=== PATIENT | female | born 1960 | race Caucasian/White ===

== ENCOUNTER 2016-10-26 14:48 | Inpatient (IN) | payer OTHER ==
[~2016-10-26] VITALS: Ht 160 cm; Wt 80.0 kg
[2016-10-26] VITALS (8 sets, daily range): BP systolic 111–165; BP diastolic 70–95; PULSE 60–80; RESP 18–20; TEMP 97.7–98.5; O2SAT 97–100
[~2016-10-26 14:48] MED LIST: CELE20TA PO
--- NOTE | 2016-10-26 15:27 | PD ---
HPI Chief Complaint: Chest Pain Time Seen by Provider: 15:07 Travel History International Travel<30 days: No Contact w/Intl Traveler<30days: No Traveled to known affect area: No History of Present Illness HPI Patient is a 56-year-old female who presents to emergency room with her chest pain. She reports that she has been having intermittent chest pain for the past few months. Reports that today, she was having substernal chest pain which started around 10:30 to 11 AM, reports that radiates to her neck and upper jaw. Patient reports that the pain feels like a "pressure" to my chest. Also reports associated shortness of breath with her symptoms. Patient reports that nothing makes her pain better or worse. She reports that she was seen by Dr. short in the office for her chest pain. Patient reports that she had an abnormal stress test one month ago - reports that it showed ischemia and Dr. Short did talk to patient about eventually requiring cardiac cath with possible stent placement. Patient reports that she was placed on medicines about one month ago by Dr. short, she is unsure which medicines these are. PFSH Past Medical History Cancer: No Cardiovascular Problems: No Diabetes: No Endocrine: No Genitourinary: No Hepatitis: No Hiatal Hernia: No Immune Disorder: No Musculoskeletal: No Neurologic: No Psychiatric: Yes (depression) Reproductive: No Respiratory: No Thyroid Disease: No Past Surgical History AICD: No Gynecologic Surgery: Yes (hysterectomy) Joint Replacement: No Pacemaker: No Social History Alcohol Use: No Tobacco Use: No Substance Use: No Allergies-Medications (Allergen,Severity, Reaction): Coded Allergies: No Known Allergies (Unverified , 10/26/16) Reported Meds & Prescriptions Reported Meds & Active Scripts Active Reported Celexa (Citalopram Hydrobromide) 20 Mg Tab 20 Mg PO DAILY Review of Systems General / Constitutional: No: Fever Eyes: No: Visual changes HENT: No: Headaches Cardiovascular: Positive: Chest Pain or Discomfort, No: Diaphoresis Respiratory: Positive: Shortness of Breath Gastrointestinal: No: Abdominal Pain Genitourinary: No: Dysuria Musculoskeletal: No: Pain Skin: No Rash Neurologic: No: Weakness Psychiatric: No: Depression Endocrine: No: Polydipsia Hematologic/Lymphatic: No: Easy Bruising Physical Exam Narrative GENERAL: No acute distress, nontoxic SKIN: Focused skin assessment warm/dry. HEAD: Atraumatic. Normocephalic. EYES: Pupils equal and round. No scleral icterus. No injection or drainage. ENT: No nasal bleeding or discharge. Mucous membranes pink and moist. NECK: Trachea midline. No JVD. CARDIOVASCULAR: Regular rate and rhythm. No murmur appreciated. RESPIRATORY: No accessory muscle use. Clear to auscultation. Breath sounds equal bilaterally. GASTROINTESTINAL: Abdomen soft, non-tender, nondistended. Hepatic and splenic margins not palpable. MUSCULOSKELETAL: No obvious deformities. No clubbing. No cyanosis. No edema. NEUROLOGICAL: Awake and alert. No obvious cranial nerve deficits. Motor grossly within normal limits. Normal speech. PSYCHIATRIC: Appropriate mood and affect; insight and judgment normal. Data Data Last Documented VS Vital Signs Date Time Temp Pulse Resp B/P Pulse Ox O2 Delivery O2 Flow Rate FiO2 10/26/16 16:00 63 142/82 97 10/26/16 15:25 Room Air 10/26/16 15:25 98.5 18 Orders Electrocardiogram (10/26/16 15:07) Ecg Monitoring (10/26/16 15:07) Iv Access Insert/Monitor (10/26/16 15:07) Oximetry (10/26/16 15:07) B-Type Natriuretic Peptide (10/26/16 15:18) Ckmb (Isoenzyme) Profile (10/26/16 15:18) Complete Blood Count With Diff (10/26/16 15:18) Comprehensive Metabolic Panel (10/26/16 15:18) Magnesium (Mg) (10/26/16 15:18) Prothrombin Time / Inr (Pt) (10/26/16 15:18) Act Partial Throm Time (Ptt) (10/26/16 15:18) Troponin I (10/26/16 15:18) Chest, Single Ap (10/26/16 15:18) Aspirin Chew (Aspirin Chew) (10/26/16 15:30) Sodium Chloride 0.9% Flush (Ns Flush) (10/26/16 15:30) Nitroglycerin Sl (Nitrostat Sl) (10/26/16 15:30) Sodium Chlorid 0.9% 500 Ml Inj (Ns 500 M (10/26/16 15:30) Consult Cardiology (10/26/16 ) Heparin Infusion EDGAR.Q1H (10/26/16 17:00) Heparin-D5w Inj (Heparin-D5w Inj) (10/26/16 17:00) Labs Laboratory Tests Test 10/26/16 15:21 White Blood Count 5.5 TH/MM3 Red Blood Count 4.66 MIL/MM3 Hemoglobin 14.5 GM/DL Hematocrit 42.6 % Mean Corpuscular Volume 91.4 FL Mean Corpuscular Hemoglobin 31.2 PG Mean Corpuscular Hemoglobin 34.1 % Concent Red Cell Distribution Width 13.6 % Platelet Count 297 TH/MM3 Mean Platelet Volume 8.4 FL Neutrophils (%) (Auto) 59.7 % Lymphocytes (%) (Auto) 32.8 % Monocytes (%) (Auto) 5.4 % Eosinophils (%) (Auto) 1.2 % Basophils (%) (Auto) 0.9 % Neutrophils # (Auto) 3.3 TH/MM3 Lymphocytes # (Auto) 1.8 TH/MM3 Monocytes # (Auto) 0.3 TH/MM3 Eosinophils # (Auto) 0.1 TH/MM3 Basophils # (Auto) 0.0 TH/MM3 CBC Comment DIFF FINAL Differential Comment Prothrombin Time 10.0 SEC Prothromb Time International 0.9 RATIO Ratio Activated Partial 25.6 SEC Thromboplast Time Sodium Level 139 MEQ/L Potassium Level 3.8 MEQ/L Chloride Level 102 MEQ/L Carbon Dioxide Level 29.6 MEQ/L Anion Gap 7 MEQ/L Blood Urea Nitrogen 11 MG/DL Creatinine 0.98 MG/DL Estimat Glomerular Filtration 58 ML/MIN Rate Random Glucose 98 MG/DL Calcium Level 9.4 MG/DL Magnesium Level 2.2 MG/DL Total Bilirubin 0.6 MG/DL Aspartate Amino Transf 14 U/L (AST/SGOT) Alanine Aminotransferase 19 U/L (ALT/SGPT) Alkaline Phosphatase 82 U/L Total Creatine Kinase 59 U/L Troponin I LESS THAN 0.02 NG/ML B-Type Natriuretic Peptide 21 PG/ML Total Protein 7.5 GM/DL Albumin 3.9 GM/DL MDM Medical Decision Making Medical Screen Exam Complete: Yes Emergency Medical Condition: Yes Interpretation(s) EKG at 1515 NSR at 70bpm, qt/qtc: 368/389, no acute st or t wave changes Vital Signs Date Time Temp Pulse Resp B/P Pulse Ox O2 Delivery O2 Flow Rate FiO2 10/26/16 14:51 97.7 80 20 155/95 99 Room Air Differential Diagnosis Differential includes ACS, arrhythmia, electrolyte abnormality, PE though unlikely Narrative Course Patient is 56-year-old female who presents to emergency with complaints of chest pain. Patient was placed on a catheterization laboratory technician upon arrival to the emergency room. EKG obtained, EKG with no ST or T-wave changes. Plan to give sublingual nitroglycerin for chest pain. Lab work including cardiac enzymes and chest x-ray ordered. Patient does follow Dr. short, or han after labs have resulted and patient is chest pain-free Vital Signs Date Time Temp Pulse Resp B/P Pulse Ox O2 Delivery O2 Flow Rate FiO2 10/26/16 14:51 97.7 80 20 155/95 99 Room Air Patient reports "decreased heaviness to my chest" after 2 SL nitro administered. Will give another SL nitro. Patient chest pain free after 3 SL nitro Call made to Dr. Short Laboratory Tests Test 10/26/16 15:21 White Blood Count 5.5 TH/MM3 (4.0-11.0) Red Blood Count 4.66 MIL/MM3 (4.00-5.30) Hemoglobin 14.5 GM/DL (11.6-15.3) Hematocrit 42.6 % (35.0-46.0) Mean Corpuscular Volume 91.4 FL (80.0-100.0) Mean Corpuscular Hemoglobin 31.2 PG (27.0-34.0) Mean Corpuscular Hemoglobin 34.1 % Concent (32.0-36.0) Red Cell Distribution Width 13.6 % (11.6-17.2) Platelet Count 297 TH/MM3 (150-450) Mean Platelet Volume 8.4 FL (7.0-11.0) Neutrophils (%) (Auto) 59.7 % (16.0-70.0) Lymphocytes (%) (Auto) 32.8 % (9.0-44.0) Monocytes (%) (Auto) 5.4 % (0.0-8.0) Eosinophils (%) (Auto) 1.2 % (0.0-4.0) Basophils (%) (Auto) 0.9 % (0.0-2.0) Neutrophils # (Auto) 3.3 TH/MM3 (1.8-7.7) Lymphocytes # (Auto) 1.8 TH/MM3 (1.0-4.8) Monocytes # (Auto) 0.3 TH/MM3 (0-0.9) Eosinophils # (Auto) 0.1 TH/MM3 (0-0.4) Basophils # (Auto) 0.0 TH/MM3 (0-0.2) CBC Comment DIFF FINAL Differential Comment Prothrombin Time 10.0 SEC (9.8-11.6) Prothromb Time International 0.9 RATIO Ratio Activated Partial 25.6 SEC Thromboplast Time (24.3-30.1) Sodium Level 139 MEQ/L (136-145) Potassium Level 3.8 MEQ/L (3.5-5.1) Chloride Level 102 MEQ/L (98-107) Carbon Dioxide Level 29.6 MEQ/L (21.0-32.0) Anion Gap 7 MEQ/L (5-15) Blood Urea Nitrogen 11 MG/DL (7-18) Creatinine 0.98 MG/DL (0.50-1.00) Estimat Glomerular Filtration 58 ML/MIN (>89) Rate Random Glucose 98 MG/DL (74-106) Calcium Level 9.4 MG/DL (8.5-10.1) Magnesium Level 2.2 MG/DL (1.5-2.5) Total Bilirubin 0.6 MG/DL (0.2-1.0) Aspartate Amino Transf 14 U/L (15-37) (AST/SGOT) Alanine Aminotransferase 19 U/L (10-53) (ALT/SGPT) Alkaline Phosphatase 82 U/L (45-117) Total Creatine Kinase 59 U/L (26-192) Troponin I LESS THAN 0.02 NG/ML (0.02-0.05) B-Type Natriuretic Peptide 21 PG/ML (0-100) Total Protein 7.5 GM/DL (6.4-8.2) Albumin 3.9 GM/DL (3.4-5.0) Case reviewed with Dr. Short, request admission to medicine service for unstable angina. Patient will require cardiac catheterization during admission Case reviewed with Dr. Richards who accepts pt to service under Dr. Ann Critical Care Narrative Aggregate critical care time was 30 minutes. Time to perform other separately billable procedures was not included in the critical care time. My time did not include minutes spent treating any other patients simultaneously or on activities that did not directly contribute to the patient's treatment. The services I provided to this patient were to treat and/or prevent clinically significant deterioration that could result in: , decompensation, deterioration I provided critical care services requiring my management, as noted below: Chart data review, documentation time, medication orders and management, vital sign assessments/reviewing monitor data, ordering and reviewing lab tests, ordering and interpreting/reviewing x-rays and diagnostic studies, care of the patient and discussion of the patient with the admitting physicians. Diagnosis Primary Impression: Unstable angina Admitting Information Admitting Physician Requests: Admit Disposition: 65 DISC TO [facility] Elham Singh DO Oct 26, 2016 15:27
[2016-10-26] MEDS ORDERED: ASPIRIN 81 MG CHEW TAB PO ONE (15:30)
[2016-10-26] MEDS ORDERED: SODIUM CHLORID 0.9% 500 ML INJ 500 ML IV ONE (15:30)
[2016-10-26] MEDS ORDERED: SODIUM CHLORIDE 0.9% FLUSH 10 ML FLUSH IVF PRN (15:30)
[2016-10-26] MEDS: NITROGLYCERIN 0.4 MG SL 25 TABS/BTL SL SCH ×3 (15:39→16:39)
--- NOTE | 2016-10-26 15:46 | RADRPT ---
EXAM DATE/TIME: 10/26/2016 15:21 [place] COMPARISON: No previous studies available for comparison. INDICATIONS : Chest pain. MEDICAL HISTORY : Cardiovascular disease. SURGICAL HISTORY : None. ENCOUNTER: Initial ACUITY: 7 - 11 months PAIN SCORE: 4/10 LOCATION: middle chest. FINDINGS: A single view of the chest demonstrates the lungs to be symmetrically aerated without evidence of mas s, infiltrate or effusion. The cardiomediastinal contours are unremarkable. Osseous structures are intact. CONCLUSION: Normal examination. Adrian Clark Jr., MD on October 26, 2016 at 15:44 Board Certified Radiologist. This report was verified electronically.
[2016-10-26 16:05] LABS: AUTOMATED NEUTROPHIL # 3.3 TH/MM3 (1.8-7.7); BASOPHIL % 0.9 % (0.0-2.0); EOSINOPHIL # 0.1 TH/MM3 (0-0.4); EOSINOPHIL % 1.2 % (0.0-4.0); HEMATOCRIT 42.6 % (35.0-46.0); HEMO FLAGS DIFF FINAL; LYMPH % 32.8 % (9.0-44.0); LYMPHOCYTE # 1.8 TH/MM3 (1.0-4.8); MEAN CELL VOLUME 91.4 FL (80.0-100.0); MEAN CORPUSCULAR HEMOGLOBIN 31.2 PG (27.0-34.0); MEAN CORPUSCULAR HGB CONC 34.1 % (32.0-36.0); MONO % 5.4 % (0.0-8.0); NEUT % 59.7 % (16.0-70.0); PLATELET COUNT 297 TH/MM3 (150-450); RED BLOOD COUNT 4.66 MIL/MM3 (4.00-5.30); RED CELL DISTRIBUTION WIDTH 13.6 % (11.6-17.2); WHITE BLOOD COUNT 5.5 TH/MM3 (4.0-11.0)
[2016-10-26 16:18] LABS: APTT (PATIENT) 25.6 SEC (24.3-30.1); INTERNATIONAL NORMALIZED RATIO 0.9 RATIO
[2016-10-26 16:36] LABS: ANION GAP 7 MEQ/L (5-15); AST (GOT) 14 U/L (15-37); BICARBONATE 29.6 MEQ/L (21.0-32.0); BLOOD UREA NITROGEN 11 MG/DL (7-18); CHLORIDE 102 MEQ/L (98-107); GLOMERULAR FILTRATION RATE 58 ML/MIN (>89); MAGNESIUM 2.2 MG/DL (1.5-2.5); POTASSIUM 3.8 MEQ/L (3.5-5.1); SODIUM (NA) 139 MEQ/L (136-145)
[2016-10-26 16:39] LABS: ALKALINE PHOSPHATASE 82 U/L (45-117); ALT (GPT) 19 U/L (10-53); TOTAL BILIRUBIN ADULT 0.6 MG/DL (0.2-1.0)
[2016-10-26 16:40] LABS: CREATINE KINASE 59 U/L (26-192)
[2016-10-26] MEDS ORDERED: HEPARIN-D5W INJ 250 ML IV SCH (17:00)
--- NOTE | 2016-10-26 18:26 | HHI.HP ---
HPI Service [facility] Hospitalists Primary Care Physician Mak Pearce MD Admission Diagnosis Unstable Angina Chief Complaint: recurrent chest pain admit as per cardiology Travel History International Travel<30 Days: No Contact w/Intl Traveler <30 Da: No Traveled to Known Affected Are: No History of Present Illness Patient is a 56-year-old female who presents to emergency room with her chest pain. She reports that she has been having intermittent chest pain for the past few months. Reports that today, she was having substernal chest pain which started around 10:30 to 11 AM, reports that radiates to her neck and upper jaw. Patient reports that the pain feels like a "pressure" to my chest. Also reports associated shortness of breath with her symptoms. Patient reports that nothing makes her pain better or worse. She reports that she was seen by Dr. short in the office for her chest pain. Patient reports that she had an abnormal stress test one month ago - reports that it showed ischemia and Dr. Short did talk to patient about eventually requiring cardiac cath with possible stent placement. Patient reports that she was placed on medicines about one month ago by Dr. short, she is unsure which medicine she is on. Patient started on heparin drip and consult to cardiology. Review of Systems Respiratory: COMPLAINS OF: Shortness of breath Cardiovascular: COMPLAINS OF: Chest pain Past Family Social History Past Medical History depression ,recent positive stress test Past Surgical History hysterectomy,tumor removed from back Reported Medications celexa,cardiac med Allergies: Coded Allergies: No Known Allergies (Unverified , 10/26/16) Family History positive for cad Social History NS,ND Physical Exam Vital Signs Vital Signs Date Time Temp Pulse Resp B/P Pulse Ox O2 Delivery O2 Flow Rate FiO2 10/26/16 17:55 65 127/74 10/26/16 16:00 63 142/82 97 10/26/16 15:25 97 Room Air 10/26/16 15:25 98.5 67 18 140/70 98 Room Air 10/26/16 14:51 97.7 80 20 155/95 99 Room Air Physical Exam GENERAL: This is a well-nourished, well-developed patient, in no apparent distress. SKIN: No rashes, ecchymoses or lesions. Cool and dry. HEAD: Atraumatic. Normocephalic. No temporal or scalp tenderness. EYES: Pupils equal round and reactive. Extraocular motions intact. No scleral icterus. No injection or drainage. ENT: Nose without bleeding, purulent drainage or septal hematoma. Throat without erythema, tonsillar hypertrophy or exudate. Uvula midline. Airway patent. NECK: Trachea midline. No JVD or lymphadenopathy. Supple, nontender, no meningeal signs. CARDIOVASCULAR: Regular rate and rhythm without murmurs, gallops, or rubs. RESPIRATORY: Clear to auscultation. Breath sounds equal bilaterally. No wheezes , rales, or rhonchi. GASTROINTESTINAL: Abdomen soft, non-tender, nondistended. No hepato-splenomegaly , or palpable masses. No guarding. MUSCULOSKELETAL: Extremities without clubbing, cyanosis, or edema. No joint tenderness, effusion, or edema noted. No calf tenderness. Negative Homans sign bilaterally. NEUROLOGICAL: Awake and alert. Cranial nerves II through XII intact. Motor and sensory grossly within normal limits. Five out of 5 muscle strength in all muscle groups. Normal speech. Laboratory Laboratory Tests Test 10/26/16 15:21 White Blood Count 5.5 Red Blood Count 4.66 Hemoglobin 14.5 Hematocrit 42.6 Mean Corpuscular Volume 91.4 Mean Corpuscular Hemoglobin 31.2 Mean Corpuscular Hemoglobin 34.1 Concent Red Cell Distribution Width 13.6 Platelet Count 297 Mean Platelet Volume 8.4 Neutrophils (%) (Auto) 59.7 Lymphocytes (%) (Auto) 32.8 Monocytes (%) (Auto) 5.4 Eosinophils (%) (Auto) 1.2 Basophils (%) (Auto) 0.9 Neutrophils # (Auto) 3.3 Lymphocytes # (Auto) 1.8 Monocytes # (Auto) 0.3 Eosinophils # (Auto) 0.1 Basophils # (Auto) 0.0 CBC Comment DIFF FINAL Differential Comment Prothrombin Time 10.0 Prothromb Time International 0.9 Ratio Activated Partial 25.6 Thromboplast Time Sodium Level 139 Potassium Level 3.8 Chloride Level 102 Carbon Dioxide Level 29.6 Anion Gap 7 Blood Urea Nitrogen 11 Creatinine 0.98 Estimat Glomerular Filtration 58 Rate Random Glucose 98 Calcium Level 9.4 Magnesium Level 2.2 Total Bilirubin 0.6 Aspartate Amino Transf 14 (AST/SGOT) Alanine Aminotransferase 19 (ALT/SGPT) Alkaline Phosphatase 82 Total Creatine Kinase 59 Troponin I LESS THAN 0.02 B-Type Natriuretic Peptide 21 Total Protein 7.5 Albumin 3.9 Result Diagram: 10/26/16 1521 10/26/16 1521 Imaging Last 24 hours Impressions Chest X-Ray 10/26/16 1518 Signed Impressions: Service Date/Time: Wednesday, October 26, 2016 15:21 - CONCLUSION: Normal examination. Adrian Clark Jr., MD Course ekg no acute changes Assessment and Plan Problem List: (1) Unstable angina Status: Acute Plan: plan ad beka probable cath ,heparin drip ntg prn add nitro paste unknown med given by cardiology may be isorbide will check records in am Assessment and Plan as above further plan pending cardiac consult Code Status full Discussed Condition With patient Physician Certification 2 Midnight Certification Type: Admission for Inpatient Services Order for Inpatient Services The services are ordered in accordance with Medicare regulations or non- Medicare payer requirements, as applicable. In the case of services not specified as inpatient-only, they are appropriately provided as inpatient services in accordance with the 2-midnight benchmark. Estimated LOS (days): 3 3 days is the estimated time the patient will need to remain in the hospital, assuming treatment plan goals are met and no additional complications. Post-Hospital Plan: Not yet determined Joni Pinedo MD Oct 26, 2016 18:26
[2016-10-26] MEDS ORDERED: NALOXONE HCL 0.4 MG/ML AMP IV PRN (18:30)
[2016-10-26] MEDS ORDERED: MAGNESIUM HYDROXIDE SUSP 30 ML CUP PO PRN (18:30)
[2016-10-26] MEDS ORDERED: TEMAZEPAM 15 MG CAP PO PRN (18:30)
[2016-10-26] MEDS ORDERED: LACTULOSE SYRUP 20 GM/30 ML CUP PO PRN (18:30)
[2016-10-26] MEDS ORDERED: SENNOSIDES 8.6 MG TAB PO PRN (18:30)
[2016-10-26] MEDS ORDERED: SODIUM CHLORIDE 0.9% FLUSH 10 ML FLUSH IV FLUSH PRN (18:30)
[2016-10-26] MEDS ORDERED: BISACODYL 10 MG SUPP RECTAL PRN (18:30)
[2016-10-26] MEDS ORDERED: ONDANSETRON HCL 4 MG/2 ML VIAL IVP PRN (18:30)
[2016-10-26] MEDS ORDERED: ACETAMINOPHEN 325 MG TAB PO PRN (18:30)
[2016-10-26] MEDS: SODIUM CHLORIDE 0.9% FLUSH 10 ML FLUSH IV FLUSH SCH (21:00)
[2016-10-26] MEDS: NITROGLYCERIN 2% OINT 1 GM PACKET TOPICAL SCH (23:44)
[2016-10-26] MEDS: DOCUSATE SODIUM 50 MG/SENNA 8.6 MG TAB PO SCH (23:44)
[2016-10-27] VITALS (10 sets, daily range): BP systolic 116–153; BP diastolic 62–88; PULSE 54–66; RESP 18–20; TEMP 97.4–97.8; O2SAT 95–99
[2016-10-27 00:35] LABS: APTT (PATIENT) 43.6 SEC (24.3-30.1)
[2016-10-27 04:52] LABS: APTT (PATIENT) 49.4 SEC (24.3-30.1)
[2016-10-27] MEDS: NITROGLYCERIN 2% OINT 1 GM PACKET TOPICAL SCH (06:09)
[2016-10-27] MEDS ORDERED: CITA20TA4 PO (07:55)
--- NOTE | 2016-10-27 08:29 | PD.PN.STU ---
Subjective Remarks Patient reports chest tightness relief with nitropaste application Has not had chest pain since initial application States pain has come and gone for several months Agreeable to inpatient admittance for potential intervention, pending cardiology opinion Objective Vitals Vital Signs Date Time Temp Pulse Resp B/P Pulse Ox O2 Delivery O2 Flow Rate FiO2 10/27/16 06:09 64 18 126/63 96 Room Air 10/27/16 04:29 65 18 116/62 95 Room Air 10/27/16 02:35 61 18 118/67 99 Room Air 10/27/16 01:25 60 18 124/73 99 Room Air 10/27/16 00:30 66 18 153/70 99 Room Air 10/26/16 23:15 62 18 121/70 99 Room Air 10/26/16 22:15 60 18 135/80 98 Room Air 10/26/16 21:08 66 18 165/83 100 Room Air 10/26/16 19:05 68 18 111/70 97 Room Air 10/26/16 17:55 65 127/74 10/26/16 16:00 63 142/82 97 10/26/16 15:25 97 Room Air 10/26/16 15:25 98.5 67 18 140/70 98 Room Air 10/26/16 14:51 97.7 80 20 155/95 99 Room Air Result Diagram: 10/26/16 1521 10/26/16 1521 Other Results Laboratory Tests Test 10/26/16 10/26/16 10/27/16 15:21 23:36 04:16 White Blood Count 5.5 TH/MM3 (4.0-11.0) Red Blood Count 4.66 MIL/MM3 (4.00-5.30) Hemoglobin 14.5 GM/DL (11.6-15.3) Hematocrit 42.6 % (35.0-46.0) Mean Corpuscular Volume 91.4 FL (80.0-100.0) Mean Corpuscular Hemoglobin 31.2 PG (27.0-34.0) Mean Corpuscular Hemoglobin 34.1 % Concent (32.0-36.0) Red Cell Distribution Width 13.6 % (11.6-17.2) Platelet Count 297 TH/MM3 (150-450) Mean Platelet Volume 8.4 FL (7.0-11.0) Neutrophils (%) (Auto) 59.7 % (16.0-70.0) Lymphocytes (%) (Auto) 32.8 % (9.0-44.0) Monocytes (%) (Auto) 5.4 % (0.0-8.0) Eosinophils (%) (Auto) 1.2 % (0.0-4.0) Basophils (%) (Auto) 0.9 % (0.0-2.0) Neutrophils # (Auto) 3.3 TH/MM3 (1.8-7.7) Lymphocytes # (Auto) 1.8 TH/MM3 (1.0-4.8) Monocytes # (Auto) 0.3 TH/MM3 (0-0.9) Eosinophils # (Auto) 0.1 TH/MM3 (0-0.4) Basophils # (Auto) 0.0 TH/MM3 (0-0.2) CBC Comment DIFF FINAL Differential Comment Prothrombin Time 10.0 SEC (9.8-11.6) Prothromb Time International 0.9 RATIO Ratio Activated Partial 25.6 SEC 43.6 SEC 49.4 SEC Thromboplast Time (24.3-30.1) (24.3-30.1) (24.3-30.1) Sodium Level 139 MEQ/L (136-145) Potassium Level 3.8 MEQ/L (3.5-5.1) Chloride Level 102 MEQ/L (98-107) Carbon Dioxide Level 29.6 MEQ/L (21.0-32.0) Anion Gap 7 MEQ/L (5-15) Blood Urea Nitrogen 11 MG/DL (7-18) Creatinine 0.98 MG/DL (0.50-1.00) Estimat Glomerular Filtration 58 ML/MIN (>89) Rate Random Glucose 98 MG/DL (74-106) Calcium Level 9.4 MG/DL (8.5-10.1) Magnesium Level 2.2 MG/DL (1.5-2.5) Total Bilirubin 0.6 MG/DL (0.2-1.0) Aspartate Amino Transf 14 U/L (15-37) (AST/SGOT) Alanine Aminotransferase 19 U/L (10-53) (ALT/SGPT) Alkaline Phosphatase 82 U/L (45-117) Total Creatine Kinase 59 U/L (26-192) Troponin I LESS THAN 0.02 LESS THAN 0.02 NG/ML NG/ML (0.02-0.05) (0.02-0.05) B-Type Natriuretic Peptide 21 PG/ML (0-100) Total Protein 7.5 GM/DL (6.4-8.2) Albumin 3.9 GM/DL (3.4-5.0) Imaging Last 72 hours Impressions Chest X-Ray 10/26/16 1518 Signed Impressions: Service Date/Time: Wednesday, October 26, 2016 15:21 - CONCLUSION: Normal examination. Adrian Clark Jr., MD Objective Remarks RRR no rubs murmurs gallops Lungs clear bilaterally No leg edema, abdominal tenderness, chest pain when palpated Troponins remain undetectable Medications and IVs Current Medications Medications (Trade) Dose Ordered Sig/Teresa Route PRN Reason Start Time Stop Time Status Last Admin Dose Admin Heparin Sodium/ Dextrose (Heparin-D5W Inj) 250 ml @ 0 mls/hr TITRATE IV 10/26/16 17:00 10/26/16 17:34 Citalopram Hydrobromide (CeleXA) 20 mg DAILY PO 10/27/16 09:00 Sodium Chloride (NS Flush) 2 ml UNSCH PRN IV FLUSH FLUSH AFTER USING IV ACCESS 10/26/16 18:30 Sodium Chloride (NS Flush) 2 ml BID IV FLUSH 10/26/16 21:00 Acetaminophen (Tylenol) 650 mg Q4H PRN PO TEMP>101F, PAIN 1-10, HEADACHE 10/26/16 18:30 Ondansetron HCl (Zofran Inj) 4 mg Q6H PRN IVP NAUSEA OR VOMITING 10/26/16 18:30 Temazepam (Restoril) 15 mg HS PRN PO INSOMNIA 10/26/16 18:30 Naloxone HCl (Narcan Inj) 0.4 mg UNSCH PRN IV SEE LABEL COMMENTS 10/26/16 18:30 Senna/Docusate Sodium (Kisha-Colace) 1 tab BID PO 10/26/16 21:00 10/26/16 23:44 Magnesium Hydroxide (Milk Of Magnesia Liq) 30 ml Q12H PRN PO MILD - MODERATE CONSTIPATION 10/26/16 18:30 Sennosides (Senokot) 17.2 mg Q12H PRN PO MODERATE - SEVERE CONSTIPATION 10/26/16 18:30 Bisacodyl (Dulcolax Supp) 10 mg DAILY PRN RECTAL SEVERE CONSITIPATION 10/26/16 18:30 Lactulose (Lactulose Liq) 30 ml DAILY PRN PO SEVERE CONSITIPATION 10/26/16 18:30 Nitroglycerin (Nitroglycerin 2% Oint) 0.5 inch Q8HR TOPICAL 10/26/16 22:00 10/27/16 06:09 A/P Assessment and Plan 1) Unstable angina Pain relieved with nitropaste, previous positive stress test Consult cardiology for evaluation with possible intervention, established with Dr. Miller Prescribed unknown medication in June, clarify with Dr. Miller Continue heparin drip Continue nitropaste as tolerated Continue telemetry 2) Depression Currently on citalopram, continue per outpatient regiment Etta Reyez M3 Oct 27, 2016 08:29
[2016-10-27] MEDS: SODIUM CHLORIDE 0.9% FLUSH 10 ML FLUSH IV FLUSH SCH (09:00)
[2016-10-27] MEDS ORDERED: CITALOPRAM HYDROBROMIDE 20 MG TAB PO SCH (09:00)
[2016-10-27] MEDS: DOCUSATE SODIUM 50 MG/SENNA 8.6 MG TAB PO SCH (09:22)
--- NOTE | 2016-10-27 09:41 | HHI.PR ---
Subjective Remarks Pt has reportedly been having intermittent chest pressure for several weeks. She had an outpt Lexiscan on 09/09/16 which noted mild to moderate inferolateral ischemia superimposed on probable subendocardial infarct pattern, normal LVSF. Pt had requested medical management and was started on Imdur 30mg po daily on 09/09/16 but has continued to have chest pain. She did have relief of her chest pain with Nitro paste application in the ED Currently CP free. Objective Vitals Vital Signs Date Time Temp Pulse Resp B/P Pulse Ox O2 Delivery O2 Flow Rate FiO2 10/27/16 06:09 64 18 126/63 96 Room Air 10/27/16 04:29 65 18 116/62 95 Room Air 10/27/16 02:35 61 18 118/67 99 Room Air 10/27/16 01:25 60 18 124/73 99 Room Air 10/27/16 00:30 66 18 153/70 99 Room Air 10/26/16 23:15 62 18 121/70 99 Room Air 10/26/16 22:15 60 18 135/80 98 Room Air 10/26/16 21:08 66 18 165/83 100 Room Air 10/26/16 19:05 68 18 111/70 97 Room Air 10/26/16 17:55 65 127/74 10/26/16 16:00 63 142/82 97 10/26/16 15:25 97 Room Air 10/26/16 15:25 98.5 67 18 140/70 98 Room Air 10/26/16 14:51 97.7 80 20 155/95 99 Room Air Result Diagram: 10/26/16 1521 10/26/16 1521 Other Results Laboratory Tests Test 10/26/16 10/26/16 10/27/16 15:21 23:36 04:16 White Blood Count 5.5 TH/MM3 Red Blood Count 4.66 MIL/MM3 Hemoglobin 14.5 GM/DL Hematocrit 42.6 % Mean Corpuscular Volume 91.4 FL Mean Corpuscular Hemoglobin 31.2 PG Mean Corpuscular Hemoglobin 34.1 % Concent Red Cell Distribution Width 13.6 % Platelet Count 297 TH/MM3 Mean Platelet Volume 8.4 FL Neutrophils (%) (Auto) 59.7 % Lymphocytes (%) (Auto) 32.8 % Monocytes (%) (Auto) 5.4 % Eosinophils (%) (Auto) 1.2 % Basophils (%) (Auto) 0.9 % Neutrophils # (Auto) 3.3 TH/MM3 Lymphocytes # (Auto) 1.8 TH/MM3 Monocytes # (Auto) 0.3 TH/MM3 Eosinophils # (Auto) 0.1 TH/MM3 Basophils # (Auto) 0.0 TH/MM3 CBC Comment DIFF FINAL Differential Comment Prothrombin Time 10.0 SEC Prothromb Time International 0.9 RATIO Ratio Activated Partial 25.6 SEC 43.6 SEC 49.4 SEC Thromboplast Time Sodium Level 139 MEQ/L Potassium Level 3.8 MEQ/L Chloride Level 102 MEQ/L Carbon Dioxide Level 29.6 MEQ/L Anion Gap 7 MEQ/L Blood Urea Nitrogen 11 MG/DL Creatinine 0.98 MG/DL Estimat Glomerular Filtration 58 ML/MIN Rate Random Glucose 98 MG/DL Calcium Level 9.4 MG/DL Magnesium Level 2.2 MG/DL Total Bilirubin 0.6 MG/DL Aspartate Amino Transf 14 U/L (AST/SGOT) Alanine Aminotransferase 19 U/L (ALT/SGPT) Alkaline Phosphatase 82 U/L Total Creatine Kinase 59 U/L Troponin I LESS THAN 0.02 LESS THAN 0.02 NG/ML NG/ML B-Type Natriuretic Peptide 21 PG/ML Total Protein 7.5 GM/DL Albumin 3.9 GM/DL Imaging Last 24 hours Impressions Chest X-Ray 10/26/16 1518 Signed Impressions: Service Date/Time: Wednesday, October 26, 2016 15:21 - CONCLUSION: Normal examination. Adrian Clark Jr., MD Objective Remarks General: NAD, AAOx3 Chest: CTA Cardiac: Regular Abd: +BS, soft ND/NT Ext: No edema A/P Problem List: (1) Unstable angina Status: Acute Plan: - Pt admitted with chest pain that has been going on for several months intermittently - She had an outpt Lexiscan on 09/09/16 which noted mild to moderate inferolateral ischemia superimposed on probable subendocardial infarct pattern, normal LVSF. - Pt had requested medical management and was started on Imdur 30mg po daily on 09/09/16 but has continued to have chest pain. - Nitro paste applied in ED with relief of chest pain - Serial CE are negative. - Heparin drip started in the ED - Cardiology consulted, pt known to Dr. Minor. - ASA - Supportive Care Assessment and Plan Patient examined. Assessment and plan formulated with Elham Gudino PA-C. I agree with the above. [facility] negative for cad. d/c home and f/u. Elham Gudino Oct 27, 2016 09:41 Rigoberto Caputo MD Oct 27, 2016 15:06
--- NOTE | 2016-10-27 10:00 | PD.CONS ---
HPI Service cardiology Consult Requested By Reason for Consult chest pain Primary Care Physician Mak Pearce MD History of Present Illness 56 yo WF with daily intermittent chest pain seen by Dr. Miller in outpatient setting in August, bhupinderiscan showed mild-moderate ischemia and has been managed medically with isosorbide. She notes mild improvement with isosorbide but continues to be symptomatic on a daily basis. Chest discomfort felt anteriorly lasting several minutes; yesterday symptoms referred to her jaw with associated SOB. She notes reoccurence of chest pain during the night. Currently feeling well. ECG has shown no concerning ST changes and serial troponins negative. Review of Systems Consitutional: DENIES: Fatigue, Fever, Chills, Weight gain, Weight loss Respiratory: DENIES: Cough, Snoring, Wheezing, Sputum production Cardiovascular: DENIES: Palpitations, Syncope, Tachycardia Gastrointestinal: DENIES: Nausea, Vomiting, Change in bowel habits, Reflux, Bloody stools, Melena Past Family Social History Allergies: Coded Allergies: No Known Allergies (Unverified , 10/26/16) Past Medical History HTN Reported Medications Reported Meds & Active Scripts Active Reported Citalopram (Citalopram Hydrobromide) 20 Mg Tab 20 Mg PO DAILY Active Ordered Medications Current Medications Medications (Trade) Dose Ordered Sig/Teresa Route Start Time Stop Time Status Last Admin (Heparin-D5W Inj) 250 ml @ 0 mls/hr TITRATE IV 10/26/16 17:00 10/26/16 17:34 (CeleXA) 20 mg DAILY PO 10/27/16 09:00 10/27/16 09:22 (NS Flush) 2 ml UNSCH PRN IV FLUSH 10/26/16 18:30 (NS Flush) 2 ml BID IV FLUSH 10/26/16 21:00 (Tylenol) 650 mg Q4H PRN PO 10/26/16 18:30 (Zofran Inj) 4 mg Q6H PRN IVP 10/26/16 18:30 (Restoril) 15 mg HS PRN PO 10/26/16 18:30 (Narcan Inj) 0.4 mg UNSCH PRN IV 10/26/16 18:30 (Kisha-Colace) 1 tab BID PO 10/26/16 21:00 10/27/16 09:22 (Milk Of Magnesia Liq) 30 ml Q12H PRN PO 10/26/16 18:30 (Senokot) 17.2 mg Q12H PRN PO 10/26/16 18:30 (Dulcolax Supp) 10 mg DAILY PRN RECTAL 10/26/16 18:30 (Lactulose Liq) 30 ml DAILY PRN PO 10/26/16 18:30 (Nitroglycerin 2% Oint) 0.5 inch Q8HR TOPICAL 10/26/16 22:00 10/27/16 06:09 Family History no known family history of premature cardiac Social History no etoh, non-smoker, no ilicit drug use Physical Exam Vital Signs Vital Signs Date Time Temp Pulse Resp B/P Pulse Ox O2 Delivery O2 Flow Rate FiO2 10/27/16 06:09 64 18 126/63 96 Room Air 10/27/16 04:29 65 18 116/62 95 Room Air 10/27/16 02:35 61 18 118/67 99 Room Air 10/27/16 01:25 60 18 124/73 99 Room Air 10/27/16 00:30 66 18 153/70 99 Room Air 10/26/16 23:15 62 18 121/70 99 Room Air 10/26/16 22:15 60 18 135/80 98 Room Air 10/26/16 21:08 66 18 165/83 100 Room Air 10/26/16 19:05 68 18 111/70 97 Room Air 10/26/16 17:55 65 127/74 10/26/16 16:00 63 142/82 97 10/26/16 15:25 97 Room Air 10/26/16 15:25 98.5 67 18 140/70 98 Room Air 10/26/16 14:51 97.7 80 20 155/95 99 Room Air Physical Exam HEAD: Atraumatic. Normocephalic. EYES: Pupils equal and round. ENT: No nasal bleeding or discharge. Mucous membranes pink and moist. NECK: Trachea midline. No JVD. CARDIOVASCULAR: Regular rate and rhythm. No murmurs RESPIRATORY: No accessory muscle use. Clear to auscultation. Breath sounds equal bilaterally. GASTROINTESTINAL: Abdomen soft, non-tender, nondistended. . MUSCULOSKELETAL: Extremities without clubbing, cyanosis, or edema. No obvious deformities. NEUROLOGICAL: Awake and alert. No obvious cranial nerve deficits. Normal speech. PSYCHIATRIC: Appropriate mood and affect; insight and judgment normal. Laboratory Laboratory Tests Test 10/26/16 10/26/16 10/27/16 15:21 23:36 04:16 White Blood Count 5.5 Red Blood Count 4.66 Hemoglobin 14.5 Hematocrit 42.6 Mean Corpuscular Volume 91.4 Mean Corpuscular Hemoglobin 31.2 Mean Corpuscular Hemoglobin 34.1 Concent Red Cell Distribution Width 13.6 Platelet Count 297 Mean Platelet Volume 8.4 Neutrophils (%) (Auto) 59.7 Lymphocytes (%) (Auto) 32.8 Monocytes (%) (Auto) 5.4 Eosinophils (%) (Auto) 1.2 Basophils (%) (Auto) 0.9 Neutrophils # (Auto) 3.3 Lymphocytes # (Auto) 1.8 Monocytes # (Auto) 0.3 Eosinophils # (Auto) 0.1 Basophils # (Auto) 0.0 CBC Comment DIFF FINAL Differential Comment Prothrombin Time 10.0 Prothromb Time International 0.9 Ratio Activated Partial 25.6 43.6 49.4 Thromboplast Time Sodium Level 139 Potassium Level 3.8 Chloride Level 102 Carbon Dioxide Level 29.6 Anion Gap 7 Blood Urea Nitrogen 11 Creatinine 0.98 Estimat Glomerular Filtration 58 Rate Random Glucose 98 Calcium Level 9.4 Magnesium Level 2.2 Total Bilirubin 0.6 Aspartate Amino Transf 14 (AST/SGOT) Alanine Aminotransferase 19 (ALT/SGPT) Alkaline Phosphatase 82 Total Creatine Kinase 59 Troponin I LESS THAN 0.02 LESS THAN 0.02 B-Type Natriuretic Peptide 21 Total Protein 7.5 Albumin 3.9 Result Diagram: 10/26/16 1521 10/26/16 1521 Imaging Last Impressions Chest X-Ray 10/26/16 1518 Signed Impressions: Service Date/Time: Wednesday, October 26, 2016 15:21 - CONCLUSION: Normal examination. Adrian Clark Jr., MD Assessment and Plan Problem List: (1) Chest pain Assessment and Plan 56 yo WF with chronic, intermittent daily chest pain. Lexiscan last month showed mild-moderate inferolateral ischemia. ECG NSR, troponins negative. chest pain- will proceed with heart catheterization this morning. keep npo. Ruma Zaidi Oct 27, 2016 10:00
--- NOTE | 2016-10-27 11:56 | EKG ---
Date Performed: 10/26/2016 Time Performed: 15:15:10 PTAGE: 56 years EKG: Sinus rhythm MODERATE VOLTAGE CRITERIA FOR LVH, CONSIDER NORMAL VARIANT BORDERLINE ECG PREVIOUS TRACING : 06/17/2015 07.55 Compared to prior tracing no significant change DOCTOR: Carlos Eduardo Hidalgo Interpretating Date/Time 10/27/2016 11:54:21
--- NOTE | 2016-10-27 11:56 | EKG ---
Date Performed: 10/27/2016 Time Performed: 06:05:18 PTAGE: 56 years EKG: Sinus rhythm NORMAL ECG PREVIOUS TRACING : 10/26/2016 15.15 Compared to prior tracing no significant change DOCTOR: Carlos Eduardo Hidalgo Interpretating Date/Time 10/27/2016 11:54:31
[2016-10-27] MEDS ORDERED: NITROGLYCERIN INJ 5 ML ONE (12:01)
[2016-10-27] MEDS ORDERED: HEPARIN-NS/PF INJ 500 ML ONE (12:01)
[2016-10-27] MEDS ORDERED: HEPARIN SODIUM - IV 10,000 UNITS/10 ML VIAL ONE (12:01)
[2016-10-27] MEDS ORDERED: MIDAZOLAM HCL 2 MG/2 ML VIAL ONE ×2 (12:04→12:16)
--- NOTE | 2016-10-27 12:34 | CATHPROC ---
[employer] HIS Report Study Information Study Number Admission Scheduled Start Study Start [id number] Oct 26 2016 5:31PM 10/27/2016 Oct 27 2016 11:29AM Ponder Service Cardiac Catheterization Admit Source Facility Department Emergency department [facility] - Field Reviewer Physician and Clinical Staff Initial Too Funez Supervisor Metal Hanging Ashish Dotson,ES Recorder Yamile Glez,RT(R) (BS) Scrub Babar Rosen RCIS(BS) Procedures Performed Procedure Location (Site) Vessel Name Coronary Angiograms LCA Left Coronary Coronary Angiograms RCA Right Coronary L Heart Cath Equipment Time Finishing Frame Runner Description Size Mfg Part Number Used/Scraped TRANSDUCER, TRUWAVE [id number] 12:07 MAIN VALENCIA * Used W/STOCKCOCK *[id number] *[id number] *[id number] *[id number] 11:37 MALLINCKRODT SYRINGE, ANGIOMAT 150ML 150ML [id number] Used [id number] 11:37 [employer] PACK, CCL CUSTOM * Used *[id number] 12:07 [employer] SUPPORT, ARTERIAL ADULT [id number] Used [id number] 12:07 [employer] PACER PEN, SKIN DUAL W/ RULER * Used *[id number] BAND, RADIAL COMPRESSION TR [id number] 12:26 [employer] MEDICAL 24CM Used SHORT 24 *[id number] SHEATH, FR6 RADIAL PRELUDE 12:07 [employer] FR 6 [id number] Used EASE 11CM [id number] 11:37 [employer] WIRE, EXCHANGE 260CM 3MMJ 260CM Used *[id number] 11:37 NAMIC MANIFOLD, 4 PORT * Used *[id number] 11:37 [employer] OMNIPAQUE, 300 MG, 150ML 150ML [id number] Used 12:07 [employer] OMNIPAQUE, 350 MG, 150ML 150ML [id number] Used [id number] 11:37 [employer] BLANKET,WARM AIR CCL * Used *[id number] History: Allergies Allergy Reaction No Known Allergies History: Risk Factors Family History of Hypertension Dyslipidemia Previous ME Previous Heart Failure Premature CAD No No Yes No No Prior Valve Prior PCI Prior CABG Surgery No No No Cerebrovascular Peripheral Artery Chronic Lung On Dialysis Diabetes Disease Disease Disease No No No No No History: Stress Tests Stress or Imaging Studies Performed Yes Standard Exercise Stress Test No Stress Echo No Stress Test SPECT Stress Test SPECT Result Stress Test SPECT Ischemia Risk/Extent Yes Positive Intermediate Stress Test CMR No Cardiac CTA Coronary Calcium Score No No History: Other Current Smoker No Labs Hgb (g/dl) Hct (%) WBC (l/cumm) Platelets (thousands) 11.60-17.00 35.00-51.00 4.00-11.00 150.00-450.00 14.5 42.6 5.5 297 Glucose (mg/dl) BUN (mg/dl) Creatinine (mg/dl) BUN:Creatinine (1:x) 74.00-106.00 7.00-18.00 0.50-1.30 10.00-20.00 98 11 0.9 12.2 Na (meq/l) 136.00-145.00 139 INR (PTT:PT) 0.90-1.10 0.9 Troponin I (ng/ml) CPK (u/l) CPK-MB (ng/ML) 0.02-0.05 26.00-308.00 0.50-3.60 0.02 59 Not Drawn Medication Medication Total Dose (Bolus/Oral) Medication Total Dosage/Unit 1% XYLOCAINE 1 mL FENTANYL 75 mcg HEPARIN 3000 units RADIAL COCKTAIL 2 mL (Bolus) VERSED 4 mg Medications (Bolus/Oral) Medication Time Given Dosage/Unit Administered By Reason VERSED 10/27/2016 12:10:56 PM 2 mg Ashish Dotson 2 mg VERSED given in lab by Ashish Dotson RN in Right Antecubital via Peripheral IV. FENTANYL 10/27/2016 12:11:30 PM 25 mcg Ashish Dotson 25 mcg FENTANYL given in lab by Ashish Dotson RN in Right Antecubital via Peripheral IV. 1% XYLOCAINE 10/27/2016 12:17:57 PM 1 mL Too Miller 1 mL 1% XYLOCAINE given in lab by Too Miller in Right Radial via Subcutaneous. Ntg 200mcg Verapamil 2.5mg Heparin RADIAL COCKTAIL 10/27/2016 12:19:00 PM 2 mL (Bolus) Too Miller 2000U 2 mL (Bolus) RADIAL COCKTAIL given in lab by Too Miller in Right Radial via Radial. Using [Soluti on Name]. Reason: Ntg 200mcg HEPARIN 10/27/2016 12:19:35 PM 3000 units Minor, Too 3000 units HEPARIN given in lab by Too Miller in Right Antecubital via Peripheral IV. VERSED 10/27/2016 12:20:24 PM 2 mg Ashish Dotson 2 mg VERSED given in lab by Ashish Dotson RN in Right Antecubital via Peripheral IV. FENTANYL 10/27/2016 12:21:51 PM 50 mcg Ashish Dotson 50 mcg FENTANYL given in lab by Ashish Dotson RN in Right Antecubital via Peripheral IV. Medication (Drip) Medication Time Given Dosage/Unit Concentration/Unit Diluent (ml) Soluti on IV Solutions 10/27/2016 11:57:10 AM 0 mL (IV) 500 NaCl .9 IV Solutions given in lab by Ashish Dotson RN in Right Antecubital via Peripheral IV. Pump/Drip Shaan w = 20 ml/hr using NaCl .9. Initial Case Assessment Cardiovascular HR Rhythm NIBP Chest Pain 64 reg 148/84 0 Edema Present Skin color Skin None Normal Warm Dry Circulatory - Right Pulses Dorsalis Pedis Femoral Radial 3 3 3 Scale (0,1,2,3,4,d) Scale (0,1,2,3,4,d) Circulatory - Lower Extremities Color Lower Right Color Lower Left Normal Normal Neurological State Oriented to time-place- Alert Moves all extremities person Respiration - General Respiration Rate SpO2 (%) (B/min) 19 96 Chronological Log Time Study Chronological Log 11:56:59 Patient arrived via Bed. 11:57:00 Patient Name, D.O.B, / Armband Verified By R.N. 11:57:00 Consent signed by the physician and the patient and verified by the Field Reviewer staff. 11:57:01 Pre-op and post- op instructions given; patient acknowledges understanding of instructions. 11:57:01 Verbal Stimulation=2 Physical Stimulation=2 Airway=2 Respiration=2 TOTAL=8. (0=absent, 1=li mited, 2=present) 11:57:03 Presedation assessment performed by Field Reviewer RN. 11:57:04 Allens test performed on the right radial and ulnar artery. 11:57:04 Immediate Presedation assesment performed by physician. 11:57:05 Patient has been NPO for More than 6Hrs. 11:57:06 Skin Breakdown none per pt 11:57:07 Patient Warmer Placed on the Table. 11:57:08 Alejandra Prominences Protected 11:57:10 A # 20 IV was noted in the Antecubital (right). Grade = 0 IV Solutions given in lab by Ashish Dotson, ES in Right Antecubital via Peripheral IV. Pump/Dr ip Flow = 20 ml/hr using 11:57:10 NaCl .9. 11:57:11 History and physical on the chart or being dictated. 11:57:26 Allens test performed on the right radial and ulnar artery. 12:00:26 MD arrived. 12:05:55 Bilateral groins prepped with 2% chlorhexidine, and with a 3 min. waiting time. Vitals capture started with the following parameters, Patient=Adult, Interval=5 min, Initial Pr dexdip=798 mmHg, 12:07:01 Deflation Rate=5 mmHg 12:07:34 HR=64 bpm, WHZF=180/84 mmhg, SpO2=97.0 %, Resp=14 B/min, Pain=0, Nico=10, Haque=2 12:09:52 Reference ECG taken Assessment: Initial Case, HR=64 BPM, Rhythm=reg, QRSZ=458/84 mmhg, Chest Pain=0, Edema=None, Co denise=Normal, Skin = Warm, Dry Right Pulses: Luis Miguel Ped=3, Femoral=3, Radial=3 12:10:15 Lower Right Extremities: Color=Normal Lower Left Extremities: Color=Normal Neurological: State=Alert, Ox3, MORRIS Respiration: Resp=19 B/min, SpO2=96 % 12:10:56 2 mg VERSED given in lab by Ashish Dotson, RN in Right Antecubital via Peripheral IV. 12:11:30 25 mcg FENTANYL given in lab by Ashish Dotson, ES in Right Antecubital via Peripheral IV. 12:12:39 HR=62 bpm, WZLE=691/78 mmhg, SpO2=99.0 %, Resp=14 B/min, Pain=0, Nico=10, Haque=2 12:13:59 Pressure channel 1 zeroed. Time Out. Correct patient, correct procedure,correct physician, power injector loaded with cont rast with surgical team 12:17:16 present. Time Out Concurred by , individual staff in procedure 12:17:19 Case Start 12:17:38 HR=64 bpm, FTFA=939/73 mmhg, SpO2=94.0 %, Resp=13 B/min, Pain=0, Nico=10, Haque=2 12:17:57 1 mL 1% XYLOCAINE given in lab by Too Miller in Right Radial via Subcutaneous. 12:18:04 Access site was right Radial Artery. A SHEATH, FR6 RADIAL PRELUDE EASE 11CM FR 6 was advanced into the Radial (right) using the Perc utaneous 12:18:17 technique. 2 mL (Bolus) RADIAL COCKTAIL given in lab by Too Miller in Right Radial via Radial. Using [ Solution Name]. 12:19:00 Reason: Ntg 200mcg A JR 5.0 INFINITI CATHETER FR 6 was advanced over a wire. OMNIPAQUE, 300 MG, 150ML 150ML was us ed for 12:19:18 injections. 12:19:35 3000 units HEPARIN given in lab by Too Miller in Right Antecubital via Peripheral IV. 12:20:24 2 mg VERSED given in lab by Ashish Dotson, ES in Right Antecubital via Peripheral IV. Recorded Pressure: LV, HR=63, Condition=Condition 1 12:20:42 (Left Ventricle) LV 116/1/6 Recorded Pressure: LV, Ao, HR=61, Condition=Condition 1 12:20:50 (Left Ventricle) LV 111/0/7, (Aorta) Ao 104/67/84 12:21:06 The RCA was injected and visualized at various angles. OMNIPAQUE, 300 MG, 150ML 150ML used . After removing the current catheter a JL 3.5 INFINITI CATHETER FR 6 was advanced over a WIRE, E XCHANGE 260CM 12:21:33 3MMJ 260CM. 12:21:51 50 mcg FENTANYL given in lab by Ashish Dotson, ES in Right Antecubital via Peripheral IV. 12:22:37 HR=61 bpm, BVDL=514/61 mmhg, SpO2=90.0 %, Resp=11 B/min, Pain=0, Nico=10, Haque=2 Recorded Pressure: Ao, HR=64, Condition=Condition 1 12:23:08 (Aorta) Ao 95/63/77 12:23:21 The LCA was injected and visualized at various angles. OMNIPAQUE, 300 MG, 150ML 150ML used . 12:25:08 Catheter was removed 12::44 Case End 12::57 Catheter(s) removed without difficulty 12:26:04 No case complications noted. 12:26:07 Cine recording checked. 12:26:18 Bedside Report will be given. 12:26:22 A Left Heart Cath was performed. 12:27:34 HR=75 bpm, DNDP=319/76 mmhg, SpO2=94.0 %, Resp=15 B/min, Pain=0, Nico=10, Haque=2 12:28:24 DOCU called. Spoke to Caryn. Radial Compression Device Used. 13 mLs of air placed in BAND, RADIAL COMPRESSION TR SHORT 24 2 4CM. Affected 12:28:35 hand 97 % O2 saturation. 12:34:47 Patient moved to stretcher End Study - Contrast Media Used In Study Contrast Total Opened (mL) Total Used (mL) Total Wasted (mL) Omnipaque 25 25 0 End Study - Maximum Contrast Load Max Contrast Load (mL) 444.4 End Study - Radiation Exposure Fluoro Time (minutes) 1.5 End Study - Sheaths Sheaths Pulled By Sheath Hold Time (min) Babar Rosen End Study - Patient Disposition Complications Transferred To Interventional Outcome No Telemetry Bed No attempt made
[2016-10-27] MEDS ORDERED: BACITRACIN OINT 0.9 GM PKT TOP ONE (13:00)
[2016-10-27] MEDS ORDERED: MISC INFORMATION XX ONE (13:00)
--- NOTE | 2016-10-27 13:13 | MA ---
cc: DAMI LUEVANO DATE 10/27/2016 PROCEDURE PERFORMED 1. Fluoroscopy with interpretation 2. Coronary angiography 3. Left heart catheterization METHOD The risks, benefits and alternatives discussed with the patient. The patient understood and consented to the procedure. The patient brought into the catheterization lab, placed on the catheterization table. The right wrist was prepped and draped in a sterile fashion. The right wrist was anesthetized with 2% lidocaine. The right radial artery was cannulated and a 6-Lithuanian, 7 cm sheath was placed without difficulty. 12 mcg of intra-arterial nitroglycerin and 3000 units of intravenous heparin was administered. LEFT HEART CATHETERIZATION Intraoperative hemodynamics measured 100/60 mmHg. CORONARY ANGIOGRAPHY 1. Left main is short, almost a separate ostium to the LAD and circumflex coronary arteries, but otherwise angiographically normal. 2. The left anterior descending coronary artery is angiographically normal. It gives rise to a diagonal branch angiographically normal. 3. Left circumflex is angiographically normal. 4. Right coronary is a dominant vessel giving rise to a posterior descending coronary. The right coronary and posterior descending coronary artery is angiographically normal. CONCLUSION 1. Angiographically normal coronaries. 2. Normal left-sided filling pressures. PLAN Pain appears to be noncardiac in etiology. The patient can probably follow up with outpatient GI and primary care doctor. MD FAVIAN Lopez/DEONTE /12:42 PM /1:11 PM
[2016-10-27] MEDS ORDERED: IOHEXOL 350 MG/ML 50 ML BTL (for Cath Lab) OTHER ONE (14:18)
--- NOTE | 2016-10-27 15:07 | HHI.DCPOC ---
Discharge Care Plan Diagnosis: (1) Unstable angina Goals to Promote Your Health * To prevent worsening of your condition and complications * To maintain your health at the optimal level Directions to Meet Your Goals Take your medications as prescribed Follow your dietary instruction Follow activity as directed Keep your appointments as scheduled Take your immunizations and boosters as scheduled If your symptoms worsen call your PCP, if no PCP go to Urgent Care Center or Emergency Room Smoking is Dangerous to Your Health. Avoid second hand smoke Call the 24-hour hour crisis hotline for domestic abuse at Rigoberto Caputo MD Oct 27, 2016 15:06
== END 2016-10-27 17:58 | disposition home or self-care (01) | DRG 287 ==
LOC: NEPC 14:48 → NEDA 17:31 → NEDH 21:31 → HCIS 10-27 10:02
PROVIDERS: ADMIT Hospitalist; ATTEND Hospitalist
PROC: 4A023N7 Measurement of Cardiac Sampling and Pressure, Left Heart, Percutaneous Approach (ICD-10-PCS; principal; 2016-10-27)
PROC: B2111ZZ Fluoroscopy of Multiple Coronary Arteries using Low Osmolar Contrast (ICD-10-PCS; 2016-10-27)
DX: R07.89 Other chest pain (principal); I10 Essential (primary) hypertension; R68.84 Jaw pain; F32.9 Major depressive disorder, single episode, unspecified
CPT/HCPCS: 71010; 80053; 82550; 83735; 83880; 84484; 85025; 85610; 85730; 93005; 93454; 96360; C1769; C1893; J1644; J2250; J3010; J7040; Q9967